=== PATIENT | male | born 1990 | race Caucasian/White ===

== ENCOUNTER 2016-11-25 15:22 | Emergency (ER) | payer OTHER ==
[~2016-11-25] VITALS: Ht 175.3 cm; Wt 79.0 kg
[~2016-11-25 15:22] MED LIST: ACET325T33 PO; ALBU18HF INHALATION; ALBU8.5H3 INH; IBUP-1542 PO; METH500T PO; MOME13HF INHALATION; NAPR-260 PO
[2016-11-25 15:26] VITALS: Ht 175.3 cm; Wt 79.0 kg
--- NOTE | 2016-11-25 17:07 | RADRPT ---
PROCEDURE: XR Left Ankle. CLINICAL INDICATION: Left ankle pain. TECHNIQUE: 3 views. Frontal, lateral, and oblique. COMPARISON: None. FINDINGS: There is no fracture or dislocation. The soft tissues are normal. Articular surfaces are intact. There is no lytic or blastic lesion. There is no radiopaque foreign body. IMPRESSION: 1. Normal images of the left ankle. RPTAT: QQ .Agustin Darling MD, MD Date Time Electronically viewed and signed by .Agustin Darling MD, on 11/25/2016 17:07 .R/
--- NOTE | 2016-11-25 17:08 | RADRPT ---
PROCEDURE: XR Left Tibia and Fibula. CLINICAL INDICATION: Trauma due to a fall. Left lower leg pain. TECHNIQUE: Two views. Frontal and lateral. COMPARISON: No prior studies are available for comparison. FINDINGS: There is no fracture or dislocation. The soft tissues are normal. Articular surfaces are intact. There is no lytic or blastic lesion. There is no radiopaque foreign body. IMPRESSION: 1. Normal images of the left tibia and fibula. RPTAT: QQ .Agustin Darling MD, Date Time Electronically viewed and signed by .Agustin Darling MD, on 11/25/2016 17:07 .R/
[2016-11-25] MEDS ORDERED: IBUP-1542 PO (17:15)
--- NOTE | 2016-11-25 17:20 | ERD ---
ER Documentation Chief Complaint Date/Time DATE: 11/25/16 TIME: 17:15 Chief Complaint 10/10 lwft ankle pain x i day HPI Patient is a 26-year-old male who presents to the emergency department with left ankle pain 1 day. Patient states the day prior he was running on the treadmill. Patient states he was running for approximately 10-15 minutes. Patient is unsure if he twisted his ankle. Patient reports mild pain when ambulating. Patient denies any pain at rest. Patient describes the pain to be on the lateral aspect of his lower leg as well as ankle. Patient denies any previous injuries to the affected extremity. Patient denies any fevers, chills , nausea, vomiting, back pain or LOC. ROS All systems reviewed and are negative except as per history of present illness. Medications Home Meds Active Scripts Ibuprofen* (Motrin*) 600 Mg Tab, 600 MG PO Q6, #30 TAB Prov:BREN CHOU PA-C 11/25/16 Albuterol Sulfate* (Ventolin HFA*) 18 Gm Hfa.aer.ad, 2 PUFF INHALATION Q4H, #1 INHALER Prov:VIVIANA,WALDO DO 03/31/16 Mometasone-Formoterol (Dulera) 200-5 Mcg/Inh - 13 Gm Hfa.aer.ad, 2 PUFFS INHALATION BID, #1 INHALER Prov:VIVIANA,WALDO DO 03/31/16 Acetaminophen* (Tylenol*) 325 Mg Tablet, 2 TAB PO Q8 Y for PAIN AND OR ELEVATED TEMP, #20 TAB Prov:VIVIANAWALDO DO 03/31/16 Ibuprofen* (Motrin*) 600 Mg Tab, 600 MG PO Q8, #30 TAB Prov:VIVIANA,WALDO DO 03/31/16 Naproxen* (Naprosyn*) 500 Mg Tablet, 500 MG PO BID Y for PAIN AND/OR INFLAMMATION, #20 TAB Prov:FERNANDO BLOOD DO 01/20/16 Methocarbamol* (Robaxin*) 500 Mg Tab, 500 MG PO Q8, #20 TAB Prov:FERNANDO BLOOD DO 01/20/16 Reported Medications Albuterol Sulfate* (Proair HFA*) 8.5 Gm Hfa.aer.ad, 2 PUFF INH QID Y for SHORTNESS OF BREATH, INH 01/23/14 Allergies Allergies: Coded Allergies: Penicillins (Verified Allergy, Unknown, 11/25/16) PMhx/Soc Medical and Surgical Hx: pt denies Medical Hx History of Surgery: No Anesthesia Reaction: No Hx Neurological Disorder: No Hx Respiratory Disorders: Yes (ASTHMA) Hx Cardiac Disorders: No Hx Psychiatric Problems: No Hx Miscellaneous Medical Probl: No Hx Alcohol Use: No Hx Substance Use: No Hx Tobacco Use: No FmHx Family History: No diabetes Physical Exam Vitals Vital Signs Date Time Temp Pulse Resp B/P Pulse Ox O2 Delivery O2 Flow Rate FiO2 11/25/16 15:26 97.3 68 18 135/61 98 Physical Exam GENERAL: Well-developed, well-nourished male. Appears in no acute distress. HEAD: Normocephalic, atraumatic. EYES: Pupils are equally reactive bilaterally. EOMs grossly intact. No conjunctival erythema. ENT: Moist mucous membranes. No uvula deviation. No kissing tonsils. NECK: Supple. No meningismus. Normal range of motion of the neck. LUNG: Clear to auscultation bilaterally. No rhonchi, wheezing, rales or coarse breath sounds. HEART: Regular rate and rhythm. No murmurs, rubs or gallops. EXTREMITIES: Equal pulses bilaterally. No peripheral clubbing, cyanosis or edema. No unilateral leg swelling. NEUROLOGIC: Alert and oriented. Moving all four extremities without any difficulty. Normal speech. Steady gait. SKIN: Normal color. Warm and dry. No rashes or lesions. LEFT ANKLE: No deformity, erythema, ecchymosis or swelling. Skin intact. Full ROM of ankle and knee.. Nontender palpation of the proximal tibia-fibula. Tender to palpation of the lateral ankle and distal fibula. Sensation intact to light touch. Neurovascularly intact. (Able to plantarflex, dorsiflex, johanna foot, invert foot, raise big toe.) 2+ DP and DT pulses. Procedures/MDM ED COURSE: The patient was stable throughout ED course. I kept the patient and/or family informed of laboratory and diagnostic imaging results throughout the ED course. DIAGNOSTIC IMAGING: Read by radiologist. Patient: YAMILETH ASHER : 1990 Age: 26 Sex: M MR #: [id number] DOS: 11/25/16 1623 Ordering MD: BREN CHOU PA-C Location: [facility] Room/Bed: PROCEDURE: XR Left Tibia and Fibula. CLINICAL INDICATION: Trauma due to a fall. Left lower leg pain. TECHNIQUE: Two views. Frontal and lateral. COMPARISON: No prior studies are available for comparison. FINDINGS: There is no fracture or dislocation. The soft tissues are normal. Articular surfaces are intact. There is no lytic or blastic lesion. There is no radiopaque foreign body. IMPRESSION: 1. Normal images of the left tibia and fibula. RPTAT: QQ .Agustin Darling MD, MD Date Time Electronically viewed and signed by .Agustin Darling MD, MD on 11/25/2016 17:07 .R/ CC: BREN CHOU PA-C Patient: YAMILETH ASHER : 1990 Age: 26 Sex: M MR #: [id number] DOS: 11/25/16 1623 Ordering MD: BREN CHOU PA-C Location: [facility] Room/Bed: PROCEDURE: XR Left Ankle. CLINICAL INDICATION: Left ankle pain. TECHNIQUE: 3 views. Frontal, lateral, and oblique. COMPARISON: None. FINDINGS: There is no fracture or dislocation. The soft tissues are normal. Articular surfaces are intact. There is no lytic or blastic lesion. There is no radiopaque foreign body. IMPRESSION: 1. Normal images of the left ankle. RPTAT: QQ .Agustin Darling MD, MD Date Time Electronically viewed and signed by .Agustin Darling MD, MD on 11/25/2016 17:07 .R/ CC: BREN CHOU PA-C PROCEDURES: None. MEDICATIONS GIVEN: Ibuprofen Patient tolerated medication well with no adverse reactions. Patient reported improvement in pain. MEDICAL DECISION MAKING: This is a 26-year-old male who presents the ED with left ankle pain and fibula pain after possible twist injury while running on the treadmill.. Vital signs were reviewed. Patient was afebrile. X-ray imaging of the left ankle and tibia- fibula was negative for acute fraction or dislocation. Given these findings, the patient's presentation is most consistent with sprain injury. I have a much lower clinical concern for ankle dislocation, ankle fracture, tibia fracture, fibula fracture, tibial plateau fracture, Maisonneuve fracture, foot fracture, osteomyelitis, septic joint, gout, osteoarthritis, DVT , compartment syndrome. At this time, unable to rule out any tendon and ligament injuries. PRESCRIPTIONS: Ibuprofen DISCHARGE: At this time, patient is stable for discharge and outpatient management. RICE therapy and ROM exercises were advised to avoid stiffness. I have instructed the patient to follow-up with his/her primary care physician in 1-2 days. I have discussed with the patient the possibility of needing to see an business specialist for further workup and imaging if the pain persists. I have instructed the patient to promptly return to the ER for any new or worsening symptoms including increased pain, swelling, redness, warmth or fever. The patient and/or family expressed understanding of and agreement with this plan. All questions were answered. Home care instructions were provided. Departure Diagnosis: Primary Impression: Ankle injury Encounter type: initial encounter Laterality: left Qualified Code: S99.912A - Ankle injury, left, initial encounter Condition: Stable Patient Instructions: What Are Ankle Sprains? Referrals: [facility] (PCP) [facility] Additional Instructions: Call your primary care doctor TOMORROW for an appointment during the next 1-2 days.See the doctor sooner or return here if your condition worsens before your appointment time. Unable to rule out any ligament or tendon injuries at this time. May need to follow-up with business specialist and/or obtain MRI pain persist. Patient will need to follow-up with a primary care physician in the next 1 to 2 days. BREN CHOU PA-C Nov 25, 2016 17:19
== END 2016-11-25 17:46 | disposition home or self-care (01) ==
LOC: FTE 15:22
DX: S99.912A Unspecified injury of left ankle, initial encounter (principal); J45.909 Unspecified asthma, uncomplicated; X58.XXXA Exposure to other specified factors, initial encounter; Y92.9 Unspecified place or not applicable
CPT/HCPCS: 73590; 73610; Z7502

== ENCOUNTER 2017-10-08 17:44 | Emergency (ER) | END 2017-10-08 22:45 | disposition home or self-care (01) ==

== ENCOUNTER 2017-10-18 13:48 | Emergency (ER) | END 2017-10-18 15:12 | disposition home or self-care (01) ==

== ENCOUNTER 2017-10-24 20:01 | Emergency (ER) | END 2017-10-25 01:50 | disposition home or self-care (01) ==

== ENCOUNTER 2017-11-20 13:17 | Emergency (ER) | END 2017-11-20 16:03 | disposition home or self-care (01) ==